=== PATIENT | female | born 1995 | race Two or more races ===

== ENCOUNTER 2022-03-09 13:33 | Observation (INO) | payer MEDICAID ==
[~2022-03-09] VITALS: Ht 160 cm; Wt 113.4 kg
[2022-03-09] MEDS ORDERED: PREN-96 PO (15:08)
[2022-03-09] MEDS ORDERED: LORA-622 PO (15:09)
== END 2022-03-09 14:45 | disposition home or self-care (01) ==
LOC: LDRP 13:33 → UNDOADMOB 13:33 → LDRP 13:51 → UNDODISOB 14:45
PROVIDERS: ADMIT Obstetrics & Gynecology; ATTEND Obstetrics & Gynecology
DX: O24.419 Gestational diabetes mellitus in pregnancy, unspecified control (principal); O60.03 Preterm labor without delivery, third trimester; O26.879 Cervical shortening, unspecified trimester; O36.63X0 Maternal care for excessive fetal growth, third trimester, not applicable or unspecified; O26.893 Other specified pregnancy related conditions, third trimester; R10.31 Right lower quadrant pain; R10.32 Left lower quadrant pain; Z3A.32 32 weeks gestation of pregnancy
CPT/HCPCS: 59025; 76817; 76818; 81002; 94762; G0378

== ENCOUNTER 2022-03-14 07:49 | Observation (INO) | payer MEDICAID ==
[~2022-03-14 07:49] MED LIST: LORA-622 PO; PREN-96 PO
== END 2022-03-14 16:00 | disposition home or self-care (01) ==
LOC: UNDOADMOB 14:06 → LDRP 14:06
PROVIDERS: ADMIT Obstetrics & Gynecology; ATTEND Obstetrics & Gynecology
DX: O26.873 Cervical shortening, third trimester (principal); O60.03 Preterm labor without delivery, third trimester; O36.63X0 Maternal care for excessive fetal growth, third trimester, not applicable or unspecified; Z3A.33 33 weeks gestation of pregnancy
CPT/HCPCS: 59025; 76817; 76818; 81002; 94760; G0378

== ENCOUNTER 2022-03-21 08:45 | Observation (INO) | payer MEDICAID ==
[2022-03-23] MEDS ORDERED: NIF10C PO (12:10)
[2022-03-23] MEDS ORDERED: PROGSUP3 VA (12:11)
== END 2022-03-23 12:40 | disposition home or self-care (01) ==
LOC: UNDOADMOB 03-23 11:17 → LDRP 03-23 11:17 → UNDODISOB 03-23 12:40
PROVIDERS: ADMIT Obstetrics & Gynecology; ATTEND Obstetrics & Gynecology
DX: O60.03 Preterm labor without delivery, third trimester (principal); O26.873 Cervical shortening, third trimester; Z3A.34 34 weeks gestation of pregnancy
CPT/HCPCS: 59025; 76818; 81002; 94760; G0378

== ENCOUNTER 2022-03-28 13:50 | Observation (INO) | payer MEDICAID ==
[~2022-03-28] VITALS: Ht 160 cm; Wt 113.4 kg
[~2022-03-28 13:50] MED LIST changes: +NIF10C PO; +PROGSUP3 VA
[2022-03-28] MEDS ORDERED: BETAMETHASONE ACET (30mg/5ml) 5ml Vial 6mg/ml IM ONE (14:00)
== END 2022-03-28 14:27 | disposition home or self-care (01) ==
LOC: LDRP 13:50
PROVIDERS: ADMIT Obstetrics & Gynecology; ATTEND Obstetrics & Gynecology
DX: O24.419 Gestational diabetes mellitus in pregnancy, unspecified control (principal); Z3A.36 36 weeks gestation of pregnancy
CPT/HCPCS: 96372; G0378; J0702

== ENCOUNTER 2022-03-29 14:00 | Observation (INO) | payer MEDICAID ==
[~2022-03-29] VITALS: Ht 30.5 cm; Wt 0.5 kg
[2022-03-29] MEDS ORDERED: BETAMETHASONE ACET (30mg/5ml) 5ml Vial 6mg/ml IM ONE (14:15)
== END 2022-03-29 14:30 | disposition home or self-care (01) ==
LOC: LDRP 14:00
PROVIDERS: ADMIT Obstetrics & Gynecology; ATTEND Obstetrics & Gynecology
DX: O60.03 Preterm labor without delivery, third trimester (principal); O26.873 Cervical shortening, third trimester; Z3A.35 35 weeks gestation of pregnancy
CPT/HCPCS: 96372; G0378

== ENCOUNTER 2022-03-30 08:15 | Observation (INO) | payer MEDICAID ==
[~2022-03-30] VITALS: Ht 160 cm; Wt 113.4 kg
[2022-04-03] MEDS ORDERED: BETAMETHASONE ACET (30mg/5ml) 5ml Vial 6mg/ml IM ONE (11:30)
[2022-04-03] MEDS ORDERED: NIFEdipine 10 MG CAP PO ONE (11:30)
[2022-04-03] MEDS: TERBUTALINE SULFATE 1 MG/ML 1ML VIAL SC SCH ×2 (11:47→12:23)
== END 2022-04-03 15:10 | disposition home or self-care (01) ==
LOC: LDRP 04-03 09:09
PROVIDERS: ADMIT Obstetrics & Gynecology; ATTEND Obstetrics & Gynecology
DX: O60.03 Preterm labor without delivery, third trimester (principal); O24.419 Gestational diabetes mellitus in pregnancy, unspecified control; O26.873 Cervical shortening, third trimester; O62.9 Abnormality of forces of labor, unspecified; Z3A.36 36 weeks gestation of pregnancy
CPT/HCPCS: 59025; 76817; 76818; 81002; 82948; 82962; 94760; 96372; G0378; J3105

== ENCOUNTER 2022-04-06 10:02 | Observation (INO) | payer MEDICAID | END 2022-04-06 12:05 | disposition home or self-care (01) | LOC: UNDOADMOB 10:02 → LDRP 10:02 → UNDODISOB 12:05 | PROVIDERS: ADMIT Obstetrics & Gynecology; ATTEND Obstetrics & Gynecology | DX: O24.419 Gestational diabetes mellitus in pregnancy, unspecified control (principal); O60.03 Preterm labor without delivery, third trimester; O62.9 Abnormality of forces of labor, unspecified; O26.873 Cervical shortening, third trimester; Z3A.36 36 weeks gestation of pregnancy | CPT/HCPCS: 59025; 76818; 81002; 82948; 82962; G0378 ==

== ENCOUNTER 2022-04-11 19:25 | Observation (INO) | payer MEDICAID ==
[~2022-04-11] VITALS: Ht 160 cm; Wt 113.4 kg
== END 2022-04-11 21:52 | disposition home or self-care (01) ==
LOC: LDRP 19:25
PROVIDERS: ADMIT Obstetrics & Gynecology Obstetrics; ATTEND Obstetrics & Gynecology Obstetrics
DX: O62.9 Abnormality of forces of labor, unspecified (principal); O12.03 Gestational edema, third trimester; Z3A.37 37 weeks gestation of pregnancy
CPT/HCPCS: 59025; 81002; 82948; 82962; 94760; G0378

== ENCOUNTER 2022-04-13 10:03 | Observation (INO) | payer MEDICAID ==
[~2022-04-13 10:03] MED LIST changes: -NIF10C PO; -PROGSUP3 VA
== END 2022-04-13 13:19 | disposition home or self-care (01) ==
LOC: LDRP 11:10 → UNDOADMOB 12:19 → UNDODISOB 13:19
PROVIDERS: ADMIT Obstetrics & Gynecology; ATTEND Obstetrics & Gynecology
DX: O24.419 Gestational diabetes mellitus in pregnancy, unspecified control (principal); Z3A.37 37 weeks gestation of pregnancy
CPT/HCPCS: 82962; G0378; 59025; 76818; 81002; 82948

== ENCOUNTER 2022-04-17 07:27 | Inpatient (IN) | payer MEDICAID ==
[~2022-04-17] VITALS: Ht 160 cm; Wt 113.4 kg
[2022-04-17] MEDS ORDERED: PHISODERM TOP SOLN 240ML BTL TOP PRN (08:45)
[2022-04-17] MEDS ORDERED: BUTORPHANOL TARTRATE 2 MG/1 ML VIAL IV PRN ×2 (08:45)
[2022-04-17] MEDS ORDERED: DERMOPLAST 60ML BOTTLE TOP PRN (08:45)
[2022-04-17] MEDS ORDERED: WITCH HAZEL-GLYCERIN PAD TOP PRN (08:45)
[2022-04-17] MEDS ORDERED: PROMETHAZINE HCL 25 MG/ML 1ML IV PRN (08:45)
[2022-04-17] MEDS ORDERED: LIDOCAINE 2%HCL (LOCAL ANESTH.) INJ 10ml MDV IJ PRN (08:45)
[2022-04-17] MEDS ORDERED: PENICILLIN G POT 5MIL/D5 50ML 50 ML IV ONE (09:15)
[2022-04-17 09:36] LABS: Basophils # (auto) 0 10 ^3/uL (0-0.2); Basophils % (auto) 0.5 % (0.0-2.0); Eosinophils # (auto) 0 10 ^3/uL (0-0.8); Eosinophils % (auto) 0.3 % (0.0-7.0); Hematocrit 35.1 % (36.0-46.0); Hemoglobin 11.7 g/dL (12.2-16.2); Lymphocytes # (auto) 1.4 10 ^3/uL (0.4-5.4); Lymphocytes % (auto) 23.7 % (10.0-50.0); Mean Corpuscular Hemoglobin 28.5 pg (28.0-32.0); Mean Corpuscular Hgb Conc. 33.2 g/dL (32.0-36.0); Mean Corpuscular Volume 85.9 fL (80.0-100.0); Monocytes # (auto) 0.4 10 ^3/uL (0-1.3); Monocytes % (auto) 6.7 % (0.0-12.0); Neutrophils # (auto) 4.1 10 ^3/uL (1.6-8.6); Neutrophils % (auto) 68.8 % (37.0-80.0); Red Blood Cells 4.09 10^6/uL (4.0-5.20); Red Cell Distribution Width 14.5 % (11.8-14.3)
[2022-04-17 09:55] LABS: INR 0.92 (0.9-1.15); Partial Thromboplastin Time 24.7 sec (24.6-33.4)
[2022-04-17 09:57] LABS: Albumin 2.6 g/dL (3.4-5.0); Calcium 8.4 mg/dL (8.5-10.1); Potassium 3.8 mmol/L (3.5-5.1)
[2022-04-17 09:58] LABS: Urine Bacteria NONE SEEN /hpf (None Seen); Urine Blood Negative /uL (Negative); Urine Specific Gravity 1.015 (1.001-1.035); Urine WBC 7 /hpf (0 - 5)
[2022-04-17 10:00] LABS: BUN/Creatinine Ratio 12.5; Bilirubin, Total 0.5 mg/dL (0.2-1.0); Total Protein 7.1 g/dL (6.4-8.2)
[2022-04-17] MEDS ORDERED: ACCU-CHEK COMFORT CURVE STRIP VI SCH (10:00)
[2022-04-17] MEDS: LACTATED RINGER'S 1,000 ML IV SCH ×2 (10:03→16:45)
[2022-04-17 10:07] LABS: Alcohol, Urine < 3.0 mg/dL (0-10); Amphetamine Screen, Urine NEGATIVE (NEGATIVE); Barbiturate Scree,Urine NEGATIVE (NEGATIVE); Benzodiazephine Screen, Urine NEGATIVE (NEGATIVE); Cocaine Screen, Urine NEGATIVE (NEGATIVE); Opiate Scree,Urine NEGATIVE (NEGATIVE); Phencyclidine Screen, Urine NEGATIVE (NEGATIVE)
[2022-04-17 10:14] LABS: Cannabinoid Screen, Urine POSITIVE (NEGATIVE)
[2022-04-17] MEDS ORDERED: LACT. RINGERS/OXYTOCIN 20UNITS 1,000 ML IV SCH (10:45)
[2022-04-17] MEDS ORDERED: LACT. RINGERS/OXYTOCIN 20UNITS 500 ML IV ONE ×2 (10:45→11:15)
[2022-04-17] MEDS ORDERED: TERBUTALINE SULFATE 1 MG/ML 1ML VIAL SC PRN (10:45)
[2022-04-17] MEDS ORDERED: LIDOCAINE 2%HCL (LOCAL ANESTH.) INJ 20ML MDV ONE (13:18)
[2022-04-17] MEDS ORDERED: PENICILLIN G POTASSIUM 2,500,000 UNITS in D5W 5% 50 ML IV SCH (13:30)
[2022-04-17] MEDS ORDERED: METHYLERGONOVINE MALEATE 0.2 MG/ML AMP IM PRN (14:15)
[2022-04-17] MEDS ORDERED: METHYLERGONOVINE MALEATE 0.2 MG/ML AMP IM ONE (14:16)
[2022-04-17] MEDS ORDERED: ACETAMINOPHEN 325 MG TAB PO PRN (15:30)
[2022-04-17] MEDS ORDERED: ONDANSETRON ODT 4 MG TAB PO PRN (15:30)
[2022-04-17] MEDS ORDERED: DEXTROSE (ORAL) 12.5g/31ml 0.4g/ml GEL ONE (17:38)
[2022-04-17 18:50] VITALS: BP 112/62
[2022-04-17] MEDS: IBUPROFEN 600 MG TAB PO PRN (19:22)
[2022-04-17 23:13] VITALS: BP 109/64
[2022-04-18] MEDS: LACTATED RINGER'S 1,000 ML IV SCH ×2 (00:45→08:45)
[2022-04-18 03:13] VITALS: BP 110/62
[2022-04-18 07:00] VITALS: BP 122/66
[2022-04-18] MEDS: IBUPROFEN 600 MG TAB PO PRN (09:39)
[2022-04-18 11:00] VITALS: BP 114/77
[2022-04-18 15:00] VITALS: BP 112/68
[2022-04-18 16:35] VITALS: BP 114/68
[2022-04-19 06:06] LABS: RPR Non Reactive (Non Reactive); Rubella Antibodies, IgG 4.63 index (Immune >0.99)
== END 2022-04-18 16:35 | disposition home or self-care (01) | DRG 560 ==
LOC: LDRP 07:27 → OBSVTOIN 08:43 → LDRP 09:15
PROVIDERS: ADMIT Obstetrics & Gynecology; ATTEND Obstetrics & Gynecology
PROC: 10E0XZZ Delivery of Products of Conception, External Approach (ICD-10-PCS; principal; 2022-04-17)
PROC: 0HQ9XZZ Repair Perineum Skin, External Approach (ICD-10-PCS; 2022-04-17)
DX: O42.92 Full-term premature rupture of membranes, unspecified as to length of time between rupture and onset of labor (principal); Z37.0 Single live birth; O70.0 First degree perineal laceration during delivery; Z3A.38 38 weeks gestation of pregnancy; Z20.822 Contact with and (suspected) exposure to COVID-19
CPT/HCPCS: 36415; 59025; 59409; 76815; 80053; 80307; 81001; 81002; 82948; 82962; 84112; 85025; 85610; 85730; 86592; 86703; 86762; 86850; 86900; 86901; 87340; 94760; 96360; 96361; 96365; 96366; 96372; G0378; J2540; J2590; J7060

== ENCOUNTER 2022-05-18 04:23 | Emergency (ER) | payer MEDICAID ==
[~2022-05-18] VITALS: Ht 160 cm; Wt 109.0 kg
[2022-05-18 04:42] VITALS: BP 114/67
[2022-05-18 06:31] LABS: Basophils # (auto) 0 10 ^3/uL (0-0.2); Basophils % (auto) 0.6 % (0.0-2.0); Eosinophils # (auto) 0.1 10 ^3/uL (0-0.8); Eosinophils % (auto) 1.1 % (0.0-7.0); Hematocrit 37.9 % (36.0-46.0); Hemoglobin 12.6 g/dL (12.2-16.2); Lymphocytes # (auto) 1.7 10 ^3/uL (0.4-5.4); Lymphocytes % (auto) 23.4 % (10.0-50.0); Mean Corpuscular Hgb Conc. 33.1 g/dL (32.0-36.0); Mean Corpuscular Volume 87.4 fL (80.0-100.0); Monocytes # (auto) 0.4 10 ^3/uL (0-1.3); Neutrophils # (auto) 4.9 10 ^3/uL (1.6-8.6); Neutrophils % (auto) 69.9 % (37.0-80.0); Nucleated Red Blood Cells % 0.1 %; Red Blood Cells 4.34 10^6/uL (4.0-5.20); Red Cell Distribution Width 14.4 % (11.8-14.3); White Blood Cell 7.1 10^3/uL (4.4-10.8)
[2022-05-18] MEDS ORDERED: HYDROcodone-ACET 5/325MG TAB PO ONE (06:45)
[2022-05-18 06:52] LABS: Albumin 3.7 g/dL (3.4-5.0); BUN/Creatinine Ratio 25.8; Calcium 8.7 mg/dL (8.5-10.1); Potassium 4.5 mmol/L (3.5-5.1)
[2022-05-18 07:09] LABS: Bilirubin, Total 0.5 mg/dL (0.2-1.0); Total Protein 7.7 g/dL (6.4-8.2)
[2022-05-18] MEDS ORDERED: ACETAMINOPHEN 500 MG TAB PO ONE ×2 (07:30)
[2022-05-18 07:54] LABS: Urine Bacteria NONE SEEN /hpf (None Seen); Urine Blood Negative /uL (Negative); Urine Specific Gravity 1.021 (1.001-1.035); Urine WBC 6 /hpf (0 - 5)
== END 2022-05-18 16:08 | disposition left against medical advice (07) ==
LOC: ER 04:23
DX: R10.31 Right lower quadrant pain (principal); Z32.02 Encounter for pregnancy test, result negative
CPT/HCPCS: 36415; 74176; 76705; 76856; 80053; 81001; 81025; 83690; 84702; 85025; 86141

== ENCOUNTER → 2022-06-27 | Outpatient (CLI) | payer MEDICAID | END | disposition home or self-care (01) | LOC: LAB 10:00 | PROVIDERS: ATTEND Obstetrics & Gynecology Obstetrics | DX: O99.810 Abnormal glucose complicating pregnancy (principal); Z3A.00 Weeks of gestation of pregnancy not specified | CPT/HCPCS: 36415; 82951 ==

== ENCOUNTER 2022-07-14 10:15 | Emergency (ER) | payer MEDICAID ==
[~2022-07-14] VITALS: Ht 160 cm; Wt 111.1 kg
[2022-07-14 11:19] VITALS: BP 105/77
[2022-07-14] MEDS ORDERED: ACET-1080 PO (11:29)
[2022-07-14] MEDS ORDERED: AZIT500T66 PO (11:29)
[2022-07-14] MEDS ORDERED: ACETAMINOPHEN 500 MG TAB PO ONE (11:30)
== END 2022-07-14 11:46 | disposition home or self-care (01) ==
LOC: ER 10:15
DX: J03.90 Acute tonsillitis, unspecified (principal)